=== PATIENT | male | born 1995 | race Caucasian/White ===

== ENCOUNTER 2017-03-07 15:55 | Emergency (ER) | payer OTHER ==
[~2017-03-07] VITALS: Ht 180.3 cm; Wt 70.5 kg
[2017-03-07 15:58] VITALS: BP 166/87; PULSE 75; RESP 16; O2SAT 100
--- NOTE | 2017-03-07 18:32 | ED.REPORT ---
HPI-Trauma Minor / Fall Date of Service Mar 07, 2017 ED Provider: Doc,Ed MD History of Present Illness: removing a hydralic pump fell about 2 feet into his face happened around 315. no loc. unknown tdap. primary care is [facility]. Happened at work. [employer] 01/02 Nursing Notes Stated Complaint: HEAD INJURY, LACERATION Chief Complaint: Head, Face, Neck Trauma Nursing Notes Reviewed: Yes Allergies: Coded Allergies: Penicillins (Verified Allergy, Unknown, Rash, 03/07/17) General Time Seen by MD: 18:31 Chief Complaint Other Hx Obtained From: Patient Onset Occurred: 1 - 4 hours ago Symptom Duration: Since onset Context: Occurred at: Workplace Past Medical History Past Medical History Denies: Asthma Past Surgical History wisdom teeth Smoking History Current Every Day Smoker (1/2 pack a day for 3 years) Social History Alcohol Use: 3-5 per day Drug Use: Denies drug use Occupation single lives by self, works as a [employer] 03/07/2017 Review of Systems Basic Review of Systems Cardiovascular: No chest pain, No dyspnea on exertion, No orthopnea, No parox noct dyspnea, No palpitations Hematologic: No bleeding, No bruising Psychiatric: Normal thought content Physical Exam Initial Vital Signs Vital Signs (First) Date Time Temp Pulse Resp B/P Pulse Ox O2 Delivery O2 Flow Rate FiO2 03/07/17 15:58 36.5 75 16 166/87 100 Room Air Initial VS: Reviewed, Vital signs normal Head / Eyes: Atraumatic, Normocephalic, PERRL ENT: Mucous membranes moist, Conjunctiva normal, No scleral icterus Respiratory: Breath sounds normal, Clear to auscultation, No respiratory distress Cardiovascular: Regular rate & rhythm, Heart sounds normal, Intact distal pulses Abdomen / GI: Soft, Non-tender, No guarding, No rebound, No distention Back: No CVA tenderness Lymphatic: No lymphadenopathy Extremities: Vascular intact, Neuro intact, No swelling, No tenderness Skin: Warm, Dry, No cyanosis Neurologic: Alert, Oriented, Nonfocal Psychiatric: Mood/affect normal, Behavior normal, Normal thought content General/Constitutional: Awake, Alert, No acute distress, Well appearing, Well developed, Well hydrated, Well nourished, Cooperative, Not toxic appearing Neck: Atraumatic, Supple, No meningismus, Full range of motion, No adenopathy, No swelling, Non-tender, No midline vertebral tend, No masses patient with small localized swelling at lateral aspect of left eyebrow. 2 very small laceration on right side of neck. No hematomas palpated on head. neck is supple, no other sign of trauma ENT: Atraumatic, Airway patent, Mucous membranes moist Respiratory / Chest: Atraumatic, Breath sounds NL, Breath sounds = bilat, No respiratory distress Cardiovascular: Heart rate NL, Regular rhythm, Heart sounds NL, No gallop Abdomen: Atraumatic, Soft, Non-tender, McBurney's non-tender Interpretation & Diagnostics CT Head Interpretation PROCEDURE: CT BRAIN WITHOUT CONTRAST ([id number]) INDICATIONS: Blunt trauma TECHNIQUE: Noncontrast 4.5 mm thick angled axial sections acquired from the foramen magnum to the vertex, with coronal reformats. COMPARISON: None. FINDINGS: Image quality: Excellent. CSF spaces: Basal cisterns are patent. No extra-axial fluid collections. Ventricles are normal in size and shape. Brain: No midline shift. No intracranial masses or hemorrhage. Zaidi-white matter interface is normal. Skull and face: Soft tissue swelling overlies the left temporal bone. Calvarium and visualized facial bones are intact, without suspicious lesions. Sinuses: Visualized sinuses and mastoids are clear. IMPRESSION: 1. No acute intracranial findings. 2. Left temporal soft tissue swelling without underlying calvarial abnormality. Dictated by: Jess Benavides M.D. on 03/07/2017 at 18:52 Approved by: Jess Benavides M.D. on 03/07/2017 at 18:55 Procedures Procedure Notes: small lac on side of neck repaired with dermabond Re-Eval/Medical Decision Med Decision/Clinical Course 21 year old male presents for evualation after hydralic pump fell about 2 feet hitting him in the face. Denies LOC, nausea or other injuries No sign of brain injury or neck pain Discharge & Departure Impression: Primary Impression: Facial trauma Encounter type: initial encounter Qualified Code: S09.93XA - Unspecified injury of face, initial encounter Additional Impression: Laceration of neck Encounter type: initial encounter Qualified Code: S11.91XA - Laceration without foreign body of unspecified part of neck, initial encounter Disposition: Home Patient Instructions: Laceration (ED) Additional Instructions: The head CT looks good, no sign of brain bleed or bony damage. The laceration has been washed and has been repaired with dermabond. It was also reinforced with steri strips. Let the steri strips fall off. Use motrin 800 mg up to 3 times a day as needed for discomfort and swelling. Continue with ice 15 minutes on and 15 minutes off for 3 days. You are cleared to go to work tomorrow. I am sorry this happened. Referrals: [facility] Perry BURNHAM (PCP) EDSupervising Provider for APC: Duy Quintana MD copies to: [facility] CLINICPerry Sue ARNP Mar 07, 2017 18:32
[2017-03-07] MEDS ORDERED: Tissue Adhesive Liq (CS Supplied) TOPICAL ONE (18:45)
--- NOTE | 2017-03-07 18:56 | DRSVH ---
PROCEDURE: CT BRAIN WITHOUT CONTRAST ([id number]) INDICATIONS: Blunt trauma TECHNIQUE: Noncontrast 4.5 mm thick angled axial sections acquired from the foramen magnum to the vertex, with c oronal reformats. COMPARISON: None. FINDINGS: Image quality: Excellent. CSF spaces: Basal cisterns are patent. No extra-axial fluid collections. Ventricles are normal in size and shape. Brain: No midline shift. No intracranial masses or hemorrhage. Zaidi-white matter interface is norm al. Skull and face: Soft tissue swelling overlies the left temporal bone. Calvarium and visualized facia l bones are intact, without suspicious lesions. Sinuses: Visualized sinuses and mastoids are clear. IMPRESSION: 1. No acute intracranial findings. 2. Left temporal soft tissue swelling without underlying calvarial abnormality. Dictated by: Jess Benavides M.D. on 03/07/2017 at 18:52 Approved by: Jess Benavides M.D. on 03/07/2017 at 18:55
[2017-03-07] MEDS ORDERED: TdaP Vaccine 0.5 mL Inj IM ONE (19:25)
== END 2017-03-07 19:47 | disposition home or self-care (01) ==
LOC: SED 15:55
DX: S11.81XA Laceration without foreign body of other specified part of neck, initial encounter (principal); S09.93XA Unspecified injury of face, initial encounter; W20.8XXA Other cause of strike by thrown, projected or falling object, initial encounter; Y93.89 Activity, other specified; Y92.69 Other specified industrial and construction area as the place of occurrence of the external cause; Y99.0 Civilian activity done for income or pay; F17.200 Nicotine dependence, unspecified, uncomplicated; Z98.890 Other specified postprocedural states; Z23 Encounter for immunization; Z88.0 Allergy status to penicillin